=== PATIENT | female | born 1965 | race Caucasian/White ===

== ENCOUNTER 2024-04-13 14:37 | Emergency (ER) | payer OTHER ==
[2024-04-13] MEDS ORDERED: ASPIRIN 81 MG CHEWABLE TABLET ONE (14:59)
[2024-04-13] MEDS ORDERED: ONDANSETRON 4 MG/2 ML VIAL ONE (15:03)
[2024-04-13] MEDS ORDERED: MORPHINE 4 MG/ML SYR ONE (15:03)
[2024-04-13 15:13] LABS: Absolute Basophils 0.1 K/uL (0-0.5); Absolute Eosinophils 0.1 K/uL (0-0.5); Absolute Lymphocytes (CBC) 3.5 K/uL (0.7-4.9); Absolute Monocytes 0.5 K/uL (0.1-1.3); Absolute Neutrophil 4.5 K/uL (1.8-8.0); Basophils % 1.1 % (0-1.3); Hematocrit 41.5 % (36.0-45.0); Hemoglobin 13.9 g/dL (12.0-15.0); Lymphocytes % 40.3 % (15.3-44.8); MCH 34.3 pg (27.0-35.0); MCHC 33.6 g/dL (32.0-36.0); MCV 102.2 fL (80-100); MPV 8.2 fL (7.6-11.3); Monocytes % 6.1 % (3.3-12.3); Neutrophils % 51.5 % (41.7-73.7); Platelets 299 thou/uL (152-406); RBC Red Blood Cell Count 4.06 M/uL (3.86-4.86); Red Cell Distribution Width 13.3 % (12.1-15.2)
[2024-04-13 15:26] LABS: PT Prothrombin Time 11.5 SECONDS (9.4-12.5); Protime INR 1.03
[2024-04-13 15:32] LABS: ALT/SGPT 22 U/L (13-56); AST/SGOT 22 U/L (15-37); Albumin 4.1 g/dL (3.4-5.0); Alkaline Phosphatase 93 U/L (45-117); BUN Blood Urea Nitrogen 13 mg/dL (7-18); Bicarbonate 29 mEq/L (21-32); Bilirubin Total 0.3 mg/dL (0.2-1.0); Glomerular Filtration Rate 73 ml/min (=/>90); Glucose Level 99 mg/dL (74-106); NT PRO-BNP 165 pg/mL (<125); Protein, Total 8.1 g/dL (6.4-8.2); Sodium Level 137 mEq/L (136-145); Troponin High Sensitivity 4.1 pg/mL (<58.9)
[2024-04-13 15:36] LABS: Bilirubin Direct < 0.2 mg/dL (0-0.2); Bilirubin Indirect, Calculated 0.1 mg/dL (0.2-0.8)
--- NOTE | 2024-04-13 15:44 | RAD REPORT ---
EXAM DESCRIPTION: RAD - Chest Single View - 04/13/2024 3:33 pm CLINICAL HISTORY: CHEST PAIN COMPARISON: No comparisons FINDINGS: Lines: None. Lungs: No evidence of edema or pneumonia. Pleural: No significant pleural effusions or pneumothorax. Cardiac: The heart size is within normal limits. Mediastinum: Within normal limits. Bones: No acute fractures. Other: None IMPRESSION: No acute cardiopulmonary disease.
[2024-04-13] MEDS ORDERED: FENTANYL CITR 100 MCG/2 ML ONE (16:04)
--- NOTE | 2024-04-13 16:30 | RAD REPORT ---
EXAM DESCRIPTION: CT - Chest For Pe Angio - 04/13/2024 4:18 pm CLINICAL HISTORY: CHEST PAIN COMPARISON: No comparisons TECHNIQUE: Dynamically enhanced axial 3 mm thick images of the chest were obtained during administra tion of <100> mL Isovue 370 IV contrast. Coronal and oblique reconstruction images were generated and reviewed. Exam utilizes a protocol for optimal evaluation of pulmonary arterial tree. Maximum intensity projections 3D imaging was utilized All CT scans are performed using dose optimization technique as appropriate and may include automated exposure control or mA/KV adjustment according to patient size. FINDINGS: Chest Wall: No suspicious thyroid nodules or pathologic lymphadenopathy. Lungs: Centrilobular and paraseptal emphysema. Scattered calcified pulmonary nodules. No acute proces s in lungs. No suspicious pulmonary nodules. Pleura: No significant effusions or pneumothorax. Mediastinum/geeta: Prominent hilar lymph nodes which are likely reactive. Pulmonary arteries/Aorta: No filling defect identified. No aortic aneurysm. Heart: No significant pericardial effusion. Normal heart size. Upper abdomen: No acute abnormality.Right upper pole renal lesion which is partially imaged, likely a cyst. Bones: No acute abnormality. IMPRESSION: Negative for pulmonary embolism. No acute findings in the chest. The USPTF recommends annual screening for lung cancer with low-dose CT (LDCT) in adults aged 50 to 8 0 years who have a 20 pack-year smoking history and currently smoke or have quit within the past 15 y ears.
[2024-04-13] MEDS ORDERED: NITROGLYCERIN 0.4 MG/TAB SL ONE (17:34)
[2024-04-13 17:52] LABS: SARS-CoV-2 Antigen CONTROL BLUE LINE VIS/BG OK; SARS-CoV-2 Antigen Rapid Res Negative (Negative)
--- NOTE | 2024-04-13 18:11 | ER ---
Nurse's Notes [facility] Name: Magali Guaman Age: 59 yrs Sex: Female : 1965 Arrival Date: 04/13/2024 Time: 14:37 Bed 7 Private MD: Diagnosis: Costochondritis Presentation: 04/13 14:51 Chief complaint: Patient states: Chest pain since , getting worse. nj 14:51 Coronavirus screen: Vaccine status: Patient reports being unvaccinated. Ebola Screen: nj1 Patient denies travel to an Ebola-affected area in the 21 days before illness onset. Initial Sepsis Screen: Does the patient meet any 2 criteria? No. Patient's initial sepsis screen is negative. Does the patient have a suspected source of infection? No. Patient's initial sepsis screen is negative. Risk Assessment: Do you want to hurt yourself or someone else? Patient reports no desire to harm self or others. Onset of symptoms was April 10, 2024. 14:51 Method Of Arrival: Wheelchair [facility] 14:51 Acuity: ELIE 2 nj1 Historical: - Allergies: 15:06 No Known Allergies; nj1 - PMHx: 15:06 Chronic obstructive lung disease; Rheumatoid arthritis; Gastric reflux; Diverticulitis; nj1 Leaky heart valve; - Immunization history:: Client reports having NOT received the Covid vaccine. - Infectious Disease History:: Denies. - Social history:: Smoking status: Patient reports the use of cigarette tobacco products, smokes one pack cigarettes per day. Screenin:12 [facility] ED Fall Risk Assessment (Adult) History of falling in the last 3 months, ph including since admission No falls in past 3 months (0 pts) Confusion or Disorientation No (0 pts) Intoxicated or Sedated No (0 pts) Impaired Gait No (0 pts) Mobility Assist Device Used No (0 pt) Altered Elimination No (0 pt) Score/Fall Risk Level 0 - 2 = Low Risk Oriented to surroundings, Maintained a safe environment, Hourly rounding (assess needs \T\ fall precautionary measures) done. Abuse screen: Denies threats or abuse. Denies injuries from another. Nutritional screening: Difficulty chewing/swallowing?. Tuberculosis screening: No symptoms or risk factors identified. Assessment: 15:11 General: Appears in no apparent distress. uncomfortable, well groomed, Behavior is ph cooperative, appropriate for age. Pain: Complains of pain in anterior aspect of left upper chest and mid-sternal area Pain radiates to left shoulder. Neuro: Level of Consciousness is awake, alert, obeys commands, Oriented to person, place, time, situation. Cardiovascular: Reports chest pain, Capillary refill < 3 seconds in bilateral fingers Patient's skin is warm and dry. Rhythm is regular. Respiratory: Reports pain with respiration Airway is patent Respiratory effort is even, unlabored, Respiratory pattern is regular, symmetrical. Derm: Skin is pink, warm \T\ dry. Vital Signs: 14:51 BP 174 / 100; Pulse 72; Resp 18; Temp 98.5(O); Pulse Ox 100% on R/A; Weight 65.77 kg; nj1 Height 5 ft. 5 in. ; Pain 10/10; 15:13 BP 157 / 90; Pulse 65; Resp 18; Pulse Ox 98% on R/A; ph 16:30 BP 164 / 98; Pulse 74; Resp 18; Pulse Ox 99% ; ko1 17:30 BP 152 / 88; Pulse 72; Resp 17; Pulse Ox 97% ; ko1 18:00 BP 139 / 44; Pulse 60; Resp 16; Pulse Ox 99% ; ko1 18:27 BP 122 / 60; Pulse 61; Resp 16; Pulse Ox 99% ; ko1 14:51 Body Mass Index 24.13 (65.77 kg, 165.1 cm) nj1 14:51 Pain Scale: Adult [facility] ED Course: 14:38 Patient arrived in ED. mr 14:42 [facility] sb4 14:42 Jimbo Sanabria MD is Attending Physician. sb4 14:52 Iman Colby, DAMIEN is Primary Nurse. ph 14:52 Arm band placed on Patient placed in an exam room, on a stretcher, on pulse oximetry. ph 15:05 Basic Metabolic Panel Sent. ko1 15:05 CBC with Diff Sent. ko1 15:05 LFT's Sent. ko1 15:05 Magnesium Sent. ko1 15:05 NT PRO-BNP Sent. ko1 15:05 PT-INR Sent. ko1 15:05 Troponin HS Sent. ko1 15:06 Triage completed. nj1 15:13 Patient has correct armband on for positive identification. Placed in gown. Bed in low ph position. Call light in reach. Side rails up X 1. Client placed on continuous cardiac and pulse oximetry monitoring. NIBP monitoring applied. emts on. Door closed. Noise minimized. Warm blanket given. Pillow given. 15:14 Patient maintains SpO2 saturation greater than 95% on room air. ph 15:30 Provided Education on: call light, meds. ko1 15:35 XRAY Chest (1 view) In Process Unspecified. EDMS 16:20 Chest For PE Angio CT In Process Unspecified. EDMS 17:30 Assisted to bathroom. ko1 17:35 Troponin High Sensitivity Sent. dd2 17:35 SARS RAPID Sent. dd2 17:36 EKG done, by ED staff, reviewed by Genny Adams PA-C. dd2 18:27 No provider procedures requiring assistance completed. IV discontinued, intact, ko1 bleeding controlled, No redness/swelling at site. Pressure dressing applied. Administered Medications: 15:11 Drug: Aspirin PO Chewable Tablet 324 mg PO once; 81 mg tablets x 4 Route: PO; ph 15:41 Follow up: Response: No adverse reaction dd2 16:10 Follow up: Response: No adverse reaction ko1 15:11 Drug: morphine IVP or IV 4 mg IVP once over 4 mins Route: IVP; Infused Over: 4 mins; ph Site: left forearm; 15:26 Follow up: Response: No adverse reaction ko1 15:11 Drug: Ondansetron IVP 4 mg IVP once; over 2 minutes Route: IVP; Site: left forearm; ph 15:26 Follow up: Response: No adverse reaction ko1 16:09 Drug: fentaNYL (PF) IVP 50 mcg IVP once Route: IVP; Site: left forearm; ko1 16:24 Follow up: Response: No adverse reaction; Pain is decreased ko1 17:36 Drug: Nitroglycerin Sublingual 0.4 mg Sublingual once; every five minute if needed x3 ph Route: Sublingual; 17:51 Follow up: Response: No adverse reaction ko1 18:15 Drug: HYDROcodone-acetaminophen PO 5 mg-325 mg 2 tabs PO once Route: PO; ko1 18:33 Follow up: Response: No adverse reaction; Medication administered at discharge. ko1 18:15 Drug: Ondansetron Oral Disintegrating Tablet Oral Disintegrating Tablet 4 mg PO once ko1 Route: PO; 18:33 Follow up: Response: No adverse reaction; Medication administered at discharge. ko1 Medication: 15:13 VIS not applicable for this client. ph Outcome: 18:10 Discharge ordered by . sb4 18:27 Discharged to home ambulatory, with family, ko1 18:27 Condition: improved 18:27 Discharge instructions given to patient, family, Instructed on discharge instructions, follow up and referral plans. medication usage, Demonstrated understanding of instructions, follow-up care, medications, Prescriptions given X 3, 18:34 Patient left the ED. ko1 Signatures: Dispatcher [employer] EDKS Preeti Laureano, Reg Reg mr Iman Colby RN DAMIEN ph Isabel Craig RN RN ko1 Genny Adams PA-C PAJudith [id number] Sarah Leggett RN RN nj1 ANJEL MARTINEZ RN RN dd2
--- NOTE | 2024-04-13 18:11 | EDPHYS ---
Physician Documentation [facility] Name: Magali Guaman Age: 59 yrs Sex: Female : 1965 Arrival Date: 04/13/2024 Time: 14:37 Bed 7 Private MD: ED Physician Jimbo Sanabria HPI: 04/13 15:03 This 59 yrs old Female presents to ER via Unassigned with complaints of Chest Pain. sb4 15:04 The patient or guardian reports chest pain that is located primarily in the substernal sb4 area. Onset: 3 day(s) ago. The pain radiates to left armpit. Associated signs and symptoms: Pertinent positives: nausea. The chest pain is described as sharp. Modifying factors: The symptoms are alleviated by nothing. the symptoms are aggravated by nothing. The patient has not experienced similar symptoms in the past. The patient has been recently seen by a physician: the patient's primary care provider. Historical: - Allergies: 15:06 No Known Allergies; nj1 - PMHx: 15:06 Chronic obstructive lung disease; Rheumatoid arthritis; Gastric reflux; Diverticulitis; nj1 Leaky heart valve; - Immunization history:: Client reports having NOT received the Covid vaccine. - Infectious Disease History:: Denies. - Social history:: Smoking status: Patient reports the use of cigarette tobacco products, smokes one pack cigarettes per day. ROS: 15:04 Constitutional: Negative for fever, chills, and weight loss, sb4 15:04 Cardiovascular: Positive for chest pain, 15:04 All other systems are negative, Exam: 15:04 Head/Face: Normocephalic, atraumatic. Eyes: Extra-ocular motions intact. Periorbital sb4 areas with no swelling, redness, or edema. ENT: Mucous membranes moist. Cardiovascular: Regular rate and rhythm with a normal S1 and S2. Respiratory: Lungs have equal breath sounds bilaterally, clear to auscultation and percussion. No rales, rhonchi or wheezes noted. No increased work of breathing, no retractions or nasal flaring. Abdomen/GI: Soft, non-tender, no distension. Skin: Warm, dry with normal turgor. Normal color with no rashes, no lesions, and no evidence of cellulitis. MS/ Extremity: Pulses equal, no cyanosis. Neurovascular intact. Full, normal range of motion. Neuro: Awake and alert, GCS 15, oriented to person, place, time, and situation. Motor strength 5/5 in all extremities. Sensory grossly intact. 15:04 Constitutional: The patient appears alert, awake, in obvious pain, uncomfortable, Vital Signs: 14:51 BP 174 / 100; Pulse 72; Resp 18; Temp 98.5(O); Pulse Ox 100% on R/A; Weight 65.77 kg; nj1 Height 5 ft. 5 in. ; Pain 10/10; 15:13 BP 157 / 90; Pulse 65; Resp 18; Pulse Ox 98% on R/A; ph 16:30 BP 164 / 98; Pulse 74; Resp 18; Pulse Ox 99% ; ko1 17:30 BP 152 / 88; Pulse 72; Resp 17; Pulse Ox 97% ; ko1 18:00 BP 139 / 44; Pulse 60; Resp 16; Pulse Ox 99% ; ko1 18:27 BP 122 / 60; Pulse 61; Resp 16; Pulse Ox 99% ; ko1 14:51 Body Mass Index 24.13 (65.77 kg, 165.1 cm) nj1 14:51 Pain Scale: Adult nj1 MDM: 14:44 Patient medically screened. sb4 15:38 The patient was given aspirin in the Emergency Department. Scoring Tools HEART Score: sb4 History: ECG: Age: Risk Factors: 1 or 2 risk factors (1), Troponin: Total Score = 4. 18:08 Data reviewed: vital signs, nurses notes, lab test result(s), EKG, radiologic studies, sb4 and as a result, I will discharge patient. Counseling: I had a detailed discussion with the patient and/or guardian regarding the historical points, exam findings, and any diagnostic results supporting the discharge/admit diagnosis, the presence of at least one elevated blood pressure reading (>120/80) during this emergency department visit, lab results, radiology results, to return to the emergency department if symptoms worsen or persist or if there are any questions or concerns that arise at home. 04/13 14:57 Order name: Basic Metabolic Panel; Complete Time: 15:37 sb4 04/13 14:57 Order name: CBC with Diff; Complete Time: 15:15 sb4 04/13 14:57 Order name: LFT's; Complete Time: 15:37 sb4 08/11 14:57 Order name: Magnesium; Complete Time: 15:37 sb4 04/13 14:57 Order name: NT PRO-BNP; Complete Time: 15:37 sb4 04/13 14:57 Order name: PT-INR; Complete Time: 15:26 sb4 04/13 14:57 Order name: Troponin HS; Complete Time: 15:37 sb4 04/13 16:31 Order name: SARS RAPID; Complete Time: 17:55 sb4 04/13 17:01 Order name: Troponin High Sensitivity; Complete Time: 17:55 sb4 04/13 14:57 Order name: XRAY Chest (1 view); Complete Time: 15:48 sb4 04/13 15:39 Order name: Chest For PE Angio CT; Complete Time: 16:31 sb4 04/13 14:57 Order name: Cardiac monitoring; Complete Time: 15:01 sb4 04/13 14:57 Order name: EKG - Nurse/Tech; Complete Time: 15:01 sb4 04/13 14:57 Order name: IV Saline Lock; Complete Time: 15:01 sb4 04/13 14:57 Order name: Labs collected and sent; Complete Time: 15:05 sb4 04/13 14:57 Order name: O2 Per Protocol; Complete Time: 15:01 sb4 04/13 14:57 Order name: O2 Sat Monitoring; Complete Time: 15:01 sb4 04/13 15:49 Order name: Misc. Order: repeat trop and ekg at 1700; Complete Time: 17:39 sb4 04/13 17:01 Order name: EKG - Nurse/Tech; Complete Time: 17:35 sb4 EC:51 Rate is 65 beats/min. Rhythm is regular, Normal Sinus Rhythm. MA interval is normal at sb4 156 msec. QRS interval is normal at 108 msec. QT interval is normal. No Q waves. T waves are Normal. No ST changes noted. Clinical impression: No evidence of ischemia. Interpreted by me. Reviewed by me. 17:36 Rate is 52 beats/min. Rhythm is regular, Sinus bradycardia with 1st degree heart block. sb4 MA interval is prolonged at 218 msec. QRS interval is normal at 82 msec. QT interval is normal at 450 msec. No Q waves. T waves are Normal. No ST changes noted. Clinical impression: 1st degree heart block and No evidence of ischemia. Interpreted by me. Reviewed by me. Administered Medications: 15:11 Drug: Aspirin PO Chewable Tablet 324 mg PO once; 81 mg tablets x 4 Route: PO; ph 15:41 Follow up: Response: No adverse reaction dd2 16:10 Follow up: Response: No adverse reaction ko1 15:11 Drug: morphine IVP or IV 4 mg IVP once over 4 mins Route: IVP; Infused Over: 4 mins; ph Site: left forearm; 15:26 Follow up: Response: No adverse reaction ko1 15:11 Drug: Ondansetron IVP 4 mg IVP once; over 2 minutes Route: IVP; Site: left forearm; ph 15:26 Follow up: Response: No adverse reaction ko1 16:09 Drug: fentaNYL (PF) IVP 50 mcg IVP once Route: IVP; Site: left forearm; ko1 16:24 Follow up: Response: No adverse reaction; Pain is decreased ko1 17:36 Drug: Nitroglycerin Sublingual 0.4 mg Sublingual once; every five minute if needed x3 ph Route: Sublingual; 17:51 Follow up: Response: No adverse reaction ko1 18:15 Drug: HYDROcodone-acetaminophen PO 5 mg-325 mg 2 tabs PO once Route: PO; ko1 18:33 Follow up: Response: No adverse reaction; Medication administered at discharge. ko1 18:15 Drug: Ondansetron Oral Disintegrating Tablet Oral Disintegrating Tablet 4 mg PO once ko1 Route: PO; 18:33 Follow up: Response: No adverse reaction; Medication administered at discharge. ko1 Disposition: 18:59 Co-signature as Attending Physician, Jimbo Sanabria MD I reviewed the patient's care rn provided by the Advanced Practice Provider and agree with the diagnosis and treatment plan. Disposition Summary: 04/13/24 18:10 Discharge Ordered Notes: Location: Home sb4 Problem: new sb4 Symptoms: have improved sb4 Condition: Stable sb4 Diagnosis - Costochondritis sb4 Followup: sb4 - With: Emergency Department - When: As needed - Reason: Trouble breathing, Worsening of condition Discharge Instructions: - Discharge Summary Sheet sb4 - Costochondritis, [id number] sb4 - Chest Wall Pain, [id number] sb4 Forms: - Prescription Opioid Use sb4 - Patient Portal Instructions sb4 - Leadership Thank You Letter sb4 Prescriptions: - Diclofenac Sodium 75 mg Oral Tablet Sustained Release - take 1 tablet ORAL route 2 times per day; 30 tablet; Refills: 0, Product sb4 Selection Permitted - Tramadol 50 mg Oral Tablet - take 1 tablet ORAL route every 8 hours as needed; 12 tablet; Refills: 0, sb4 Product Selection Permitted - Prednisone 20 mg Oral Tablet - take 2 tablets ORAL route once daily for 5 days; 10 tablet; Refills: 0, Product sb4 Selection Permitted Signatures: Dispatcher [employer] EDMS Jimbo Sanabria MD MD rn Hall, Patricia RN RN Isabel Treadwell RN RN ko1 Genny Adams PAJudith PA-C sb4 Sarah Leggett RN RN nj1 ANJEL MARTINEZ RN dd2 Corrections: (The following items were deleted from the chart) 14:58 14:58 BASIC METABOLIC PANEL+C.LAB.BRZ ordered. EDMS EDMS 14:58 14:58 CBC+H.LAB.BRZ ordered. EDMS EDMS 14:58 14:58 HEPATIC FUNCTION+C.LAB.BRZ ordered. EDMS EDMS 14:58 14:58 MAGNESIUM+C.LAB.BRZ ordered. EDMS EDMS 14:58 14:58 PROBNP+C.LAB.BRZ ordered. EDMS EDMS 14:58 14:58 PROTIME (+INR)+COAG.LAB.BRZ ordered. EDMS EDMS 14:58 14:58 Troponin High Sensitivity+C.LAB.BRZ ordered. EDMS EDMS 14:58 14:58 Chest Single View+RAD.RAD.BRZ ordered. EDMS EDMS 16:31 16:31 SARS-COV-2 Antigen Rapid+I.LAB.BRZ ordered. EDMS EDMS
[2024-04-13] MEDS ORDERED: ONDANSETRON 4 MG (ODT) TAB ONE (18:13)
[2024-04-13] MEDS ORDERED: HYDROCODONE/APAP 5/325 MG TAB ONE (18:14)
[2024-04-13 18:55] VITALS: TEMP 98.5
[2024-04-13 18:59] VITALS: O2SAT 99
[2024-04-13 19:00] VITALS: BP 122/60
--- NOTE | 2024-04-14 13:46 | EKG ---
Test Date: 2024-04-13 Test Time: 15:04:14 Accounts Clerk: PH MEASUREMENT RESULTS: Intervals: Rate: 65 HI: 156 QRSD: 108 QT: 436 QTc: 453 [place]: P: 35 HI: 156 QRS: 77 T: 70 INTERPRETIVE STATEMENTS: Normal sinus rhythm Nonspecific ST abnormality Abnormal ECG No previous ECG available for comparison Electronically Signed On 04-14-24 13:44:27 CDT by Mik Dooley
--- NOTE | 2024-04-14 13:46 | EKG ---
Test Date: 2024-04-13 Test Time: 17:30:30 Actuarial Clerk: SULEMAN MEASUREMENT RESULTS: Intervals: Rate: 51 NH: 218 QRSD: 84 QT: 456 QTc: 420 [place]: P: 65 NH: 218 QRS: 62 T: 52 INTERPRETIVE STATEMENTS: Sinus bradycardia with 1st degree AV block Otherwise normal ECG Compared to ECG 04/13/2024 15:04:14 First degree AV block now present Sinus rhythm no longer present ST (T wave) deviation no longer present Electronically Signed On 04-14-24 13:43:50 CDT by Mik Dooley
== END 2024-04-13 18:34 | disposition home or self-care (01) ==
LOC: ER 14:37
DX: M94.0 Chondrocostal junction syndrome [Tietze] (principal); F17.210 Nicotine dependence, cigarettes, uncomplicated; Z11.52 Encounter for screening for COVID-19
CPT/HCPCS: 93005 ×2; 85025; 80048; 36415; 83735; 85610; 80076; 84484 ×2; 83880; 71275; 71045; 96375; 96374; 99285; 87811; Q9967; Q0162; J3010; J2405